=== PATIENT | male | born 1955 | race African-American/Black ===

== ENCOUNTER 2017-03-05 00:58 | Emergency (ER) | payer OTHER ==
[~2017-03-05] VITALS: Ht 167.6 cm; Wt 75.0 kg
[2017-03-05] MEDS ORDERED: SODIUM CHLORIDE 0.9% 1,000 ML IV ONE (01:02)
[2017-03-05] MEDS ORDERED: DEXTROSE 50% WATER 50ML SYRINGE IV ONE ×3 (01:09→04:45)
[2017-03-05] MEDS ORDERED: LABETALOL HCL 20MG/4ML CARPUJECT IV ONE (01:15)
[2017-03-05 01:17] LABS: BG BASE EXCESS -0.4 mmol/L (-2.0-2.0); BG CARBOXYHEMOGLOBIN 0.5 % (0.5-1.5); BG DEOXYHEMOGLOBIN 0.3 % (0.0-5.0); BG FRACTION INSPIRED OXYGEN 100; BG HCO3 ACT 24.6 mmol/L (22.0-26.0); BG METHEMOGLOBIN 0.4 % (0.0-1.5); BG OXYGEN SATURATION 99.7 % (92.0-98.5); BG OXYHEMOGLOBIN 98.8 % (94.0-97.0); BG PCO2 41.5 mmHg (35.0-45.0); BG PO2 390.9 mmHg (75.0-100.0); BG SAMPLE SITE RIGHT RADIAL; BG TOTAL HEMOGLOBIN 11.4 g/dL (12.0-18.0); BG VENT MODE MASK - NRB
[2017-03-05 01:26] LABS: BASOPHILS % 0.4 % (0.0-2.0); EOSINOPHILS % 0.7 % (0.0-5.0); HEMATOCRIT. 31.3 % (42.0-52.0); HEMOGLOBIN. 10.2 g/dL (14.0-18.0); LYMPHOCYTES % 26.1 % (20.0-50.0); MEAN CORPUSCULAR HEMOGLOBIN 27.9 pg (28.0-32.0); MEAN CORPUSCULAR VOLUME 85.5 fL (80.0-94.0); MEAN PLATELET VOLUME 7.3 fl (7.4-10.4); MONOCYTES % 9.3 % (2.0-8.0); NEUTROPHILS % 63.5 % (40.0-76.0); PLATELET 195 x1000/uL (130-400); RED BLOOD CELL COUNT 3.67 mill/uL (4.7-6.1)
[2017-03-05 01:30] LABS: PROTHROMBIN TIME 10.3 sec
[2017-03-05] MEDS ORDERED: LABETALOL 5MG/ML SYR 20 MG/4 ML SYRINGE IV SCH (01:30)
[2017-03-05] MEDS ORDERED: LABETALOL 5MG/ML SYR 20 MG/4 ML SYRINGE IV ONE (01:30)
[2017-03-05 01:38] LABS: AMMONIA 13 uMol/L (<32)
[2017-03-05 01:42] LABS: CARBON DIOXIDE 28 mEq/L (21-32); CHLORIDE 98 mEq/L (98-107); CREATINE KINASE 931 IU/L (39-308); ETHANOL BLOOD < 10 mg/dL; TROPONIN I 0.02 ng/mL (0.00-0.04)
[2017-03-05] MEDS ORDERED: HYDRALAZINE 20MG/ML VIAL IV ONE (04:45)
[2017-03-05 06:19] VITALS: BP 168/86
== END 2017-03-05 07:15 | disposition short-term general hospital (02) ==
LOC: ER 00:58
DX: E86.0 Dehydration (principal); E11.9 Type 2 diabetes mellitus without complications; R41.82 Altered mental status, unspecified; N28.9 Disorder of kidney and ureter, unspecified; I10 Essential (primary) hypertension; I16.0 Hypertensive urgency; I51.7 Cardiomegaly
CPT/HCPCS: 36415; 36600; 70450; 71010; 74176; 80053; 82140; 82375; 82550; 82805; 82962; 83605; 83690; 83880; 84443; 84484; 85025; 85610; 93005; 96361; 96374; 96375; 96376; 99291; G0482; J0360; J3490; J7030; Z7610

== ENCOUNTER 2022-10-22 17:50 | Emergency (ER) | payer OTHER ==
[~2022-10-22] VITALS: Ht 180.3 cm; Wt 70.0 kg
[2022-10-22] MEDS ORDERED: IOHEXOL-350 100 ML BOTTLE ONE (18:55)
[2022-10-22 19:52] LABS: BASOPHILS % 0.4 % (0.0-2.0); HEMATOCRIT. 36.6 % (42.0-52.0); HEMOGLOBIN. 11.7 g/dL (14.0-18.0); LYMPHOCYTES % 9.3 % (20.0-50.0); MEAN CORPUSCULAR HEMOGLOBIN 26.9 pg (28.0-32.0); MEAN CORPUSCULAR VOLUME 83.9 fL (80.0-94.0); MONOCYTES % 17.8 % (2.0-8.0); NEUTROPHILS % 71.5 % (40.0-76.0); PLATELET 177 x1000/uL (130-400); RED BLOOD CELL COUNT 4.36 mill/uL (4.7-6.1); RED CELL DISTRIBUTION WIDTH 19.6 % (11.6-14.6)
[2022-10-22 19:58] LABS: PROTHROMBIN TIME 11.1 sec (9.6-11.0)
[2022-10-22 20:01] LABS: CHLORIDE 95 mEq/L (98-107)
[2022-10-22 20:12] LABS: CREATINE KINASE 172 IU/L (39-308); ETHANOL BLOOD < 10 mg/dL
[2022-10-22] MEDS ORDERED: VANCOMYCIN 1G PREMIX 200 ML IV SCH (21:00)
[2022-10-22] MEDS ORDERED: PIPERACILLIN/TAZOBACTAM 3.375GM/50ML PREMIX IV ONE (21:00)
[2022-10-22] MEDS ORDERED: PIPERACILLIN/TAZ 3.375G PREMIX 50 ML IV NR (21:02)
[2022-10-22 21:24] LABS: BG BASE EXCESS 7.2 mmol/L (-2.0-2.0); BG CARBOXYHEMOGLOBIN 1.1 % (0.5-1.5); BG DEOXYHEMOGLOBIN 6.4 % (0.0-5.0); BG FRACTION INSPIRED OXYGEN 21; BG METHEMOGLOBIN 0.3 % (0.0-1.5); BG OXYGEN SATURATION 93.5 % (92.0-98.5); BG OXYHEMOGLOBIN 92.2 % (94.0-97.0); BG PCO2 45.9 mmHg (35.0-45.0); BG PH 7.461 (7.350-7.450); BG PO2 66.7 mmHg (75.0-100.0); BG SAMPLE SITE RIGHT BRACHIAL; BG TOTAL HEMOGLOBIN 12.4 g/dL (12.0-18.0); BG VENT MODE ROOM AIR
[2022-10-23 05:30] VITALS: BP 161/74
== END 2022-10-23 05:56 | disposition short-term general hospital (02) ==
LOC: ER 17:50 → EDBEDREQTM 10-23 03:03 → EDBEDREQ 10-23 03:03 → ER 10-23 05:56
DX: R41.82 Altered mental status, unspecified (principal); I12.0 Hypertensive chronic kidney disease with stage 5 chronic kidney disease or end stage renal disease; E11.22 Type 2 diabetes mellitus with diabetic chronic kidney disease; N18.6 End stage renal disease; Z99.2 Dependence on renal dialysis; Z20.822 Contact with and (suspected) exposure to COVID-19
CPT/HCPCS: 36415; 36600; 70450; 70496; 70498; 71045; 80053; 80307; 80320; 80329; 82140; 82375; 82550; 82805; 82962; 83605; 84443; 84484; 85025; 85610; 86850; 86900; 86901; 87040; 87426; 93005; 96365; 96366; 96368; 99291; C9803; J2543; J3370; Q9967; Z7610; G0480